=== PATIENT | male | born 1975 | race Caucasian/White ===

== ENCOUNTER 2018-07-25 09:44 | Emergency (ER) | payer OTHER, SELFPAY ==
[2018-07-25 10:06] VITALS: BP 113/64; PULSE 97; RESP 20; TEMP 36.8; O2SAT 98
--- NOTE | 2018-07-25 10:50 | W.ED.GENAD ---
Discharge Plan Disposition Patient Disposition: HOME Condition: Fair Discharge Details Chief Complaint: Chest/Rib Clinical Impression: Rib contusion Primary Care Provider: Cameron Mckoy ED Provider: Sangita Thomas Home Meds and New Rx's Prescriptions: Continue trazodone 50 mg Tablet 50 mg PO HS PRNRF: 0 Discharge Instructions Instructions: Rib Contusion (ED) Additional Instructions: Encourage hydration. Tylenol and/or ibuprofen as needed for discomfort. You may take 1000 mg of Tylenol 4 times daily with a max of 4000 mg daily. You may also use 600 mg of ibuprofen 4 times daily. Please avoid heavy lifting as this will increase her pain. I have asked her care transport nurse help facilitate primary care follow-up. If you develop fever/chills, cough, increased shortness of breath or other new/worsening symptoms please seek care urgently once again. Stand Alone Forms: Work Release Discharge Data Discharge Date/Time-TO BE ENTERED AT DEPARTURE: 07/25/18 12:54 Medical Decision Making MDM Narrative Medical decision making narrative: Patient is a 43-year-old male presenting today with chief complaint of anterior chest pain. He reports that 4 days ago he overdosed on what he assumed was heroin, believes this is actually fentanyl, and was revived by EMS. EMS did give him Narcan and complete round of CPR. Refused transport to the hospital at that time. Since that time, he has been having chest pain particularly on the anterior aspect. Is quite concerned that he may have fractured his sternum. Denies any shortness of breath when at rest but states that with movement, as he is needing to take deeper breaths he has increased discomfort. He continues to smoke. Patient rolls his own cigarettes. He reports that he has not used any heroin or other illicit drugs since his overdose reports that he will not do so again. He does report that he had Narcan at home but was unable to get to this. He was alone at the time and friends found him down. Patient does have history of pneumothorax that was traumatic in 1996. X-ray reviewed by radiologist. Advised that the lungs are unremarkable with no consolidation. Pleural space unremarkable, no pleural effusion, no pneumothorax. Heart and mediastinum are unremarkable no cardiomegaly. There is an oblique fracture noted in the mid left clavicular shaft. No other bony abnormalities noted by radiologist Discussed findings with the patient. She reports that he has known left clavicle fracture from several years ago. No acute process therefore is noted on the chest x-ray. He is not having any left clavicular pain today. Patient will be given an incentive spirometer and uses instructions. Encourage hydration. Advised Tylenol and/or ibuprofen as needed for discomfort. Is requesting a work note which I will give him to have really any heavy lifting as this would greatly exacerbate his discomfort. Patient does not have a primary care, I have asked our care transport nurse to help facilitate follow up with primary care within the next week for reevaluation. All of his questions and concerns were addressed. He is in agreement with this plan. HPI - General Adult General Mode of arrival: ambulatory. Date/Time Provider Initiated Documentation: 07/25/18 10:47. Limitations to Documentation: no limitations. Information obtained by: patient. History of Present Illness 43 year old M presents to the emergency department with the chief complaint of Anterior rib pain, described as moderate, with intensity rated at 5. Quality is described as stabbing and aching, and is localized to the chest. Patient reports no radiation; denies radiation to back, neck, extremity, abdomen and flank. Patient started experiencing this day(s) (4) and it has been constant. No relieving factors improve symptom(s), Movement worsens symptoms (worse with deep inspiration) . Patient notes shortness of breath (feels SOB with exacerbation, associates with worsening of his anterior CP with deep inspiration); denies cough, fever/chills, loss of appetite, nausea/vomiting and rash. Patient did receive the following treatments prior to arrival, none Related Data Home Medications Medication Instructions Recorded Confirmed trazodone 50 mg PO HS PRN 07/25/18 07/25/18 Allergies Allergy/AdvReac Type Severity Reaction Status Date / Time Penicillins Allergy Unknown Unverified 07/25/18 10:08 General Stated Complaint: Chest/Rib KATY: 3 Review of Systems Constitutional Reports as per HPI, Denies chills, Denies difficulty sleeping, Denies fever(s), Denies headache(s) and Denies poor appetite Eyes Patient Denies change in vision and Denies loss of vision ENT Denies headache(s) Cardiovascular Reports as per HPI, Reports chest pain (anterior chest wall pain), Denies dyspnea and Reports dyspnea on exertion (associates with increased pain when taking deep breaths) Respiratory Denies cough, Denies dyspnea and Reports dyspnea on exertion (associates with increased pain when taking deep breaths) Gastrointestinal Reports as per HPI, Denies abdominal pain, Denies change in bowel habits, Denies nausea and Denies vomiting Musculoskeletal Denies tingling Integumentary/Breasts Denies erythema, Denies rash and Denies skin pain Neurologic Denies headache(s), Denies focal weakness, Denies loss of vision, Denies sensory deficit, Denies tingling and Denies paresthesias Psychiatric Denies homicidal ideation and Denies suicidal ideation [facility] Social History Smoking/Tobacco Use Status: Current every day Exam Const General: cooperative, healthy appearing, comfortable, no acute distress, well developed and well groomed Nutritional Appearance: average body habitus and well nourished Orientation: alert and awake HENDC Head: normal to inspection and normocephalic Ears: hearing grossly normal bilaterally Eyes General: appearance normal, both eyes and all related structures Neck Neck: normal visual inspection, full ROM and no lymphadenopathy Chest Chest: abnormal inspection of the chest (Patient has pain with palpation over the anterior aspect of the chest. No deformity palpated. No focal area of discomfort. No pain with lateral chest wall pressure applied), normal palpation of entire chest wall, no crepitus, no localized rib tenderness, no masses and tenderness Resp Effort & Inspection: normal respiratory effort and able to speak in complete sentences Auscultation: clear to auscultation bilaterally, breath sounds present, no rales, no rhonchi and no wheezes Percussion: percussion normal Cardio Rate: regular rate Rhythm: regular rhythm Heart Sounds: S1 normal and S2 normal GI Inspection: normal to inspection, no abdominal wall ecchymosis and non-distended Palpation: soft, no hepatosplenomegaly, not firm, no masses, not rigid and nontender Auscultation: normal bowel sounds Back/Spine/Pelvis Back: no CVA tenderness Cervical Spine: cervical ROM normal Thoracic/Lumbar Spine: thoracic and lumbar spine normal to inspection Skin General skin exam: no rashes or lesions noted Lesions: no lesions Rashes: no rashes Trauma: no lacerations or abrasions Wounds: no wounds Neuro General: alert, awake and oriented x3 Cognition: normal cognition Speech: speech normal Gait: normal gait Motor: muscle tone normal throughout Sensory Exam: no sensory deficits noted Psych Appearance: grossly normal Mental Status: mental status grossly normal Speech and Movement: speech and movement normal Mood: congruent mood Affect: normal affect Course Vital Signs Temperature 36.8 C 07/25/18 10:06 Pulse 97 H 07/25/18 10:06 Respiratory Rate 20 07/25/18 10:06 Blood Pressure 113/64 07/25/18 10:06 Pulse Oximetry 98 07/25/18 10:06 Temperature 36.8 C 07/25/18 10:06 Pulse 97 H 07/25/18 10:06 Respiratory Rate 20 07/25/18 10:06 Blood Pressure 113/64 07/25/18 10:06 Pulse Oximetry 98 07/25/18 10:06
--- NOTE | 2018-07-25 10:57 | DI.RAD_ITS ---
SYMPTOM/DIAGNOSIS: CPR 4 DAYS AGO. CONCERN FOR FRACTURE. LUNGS ARE CLEAR. PA AND LATERAL CHEST: Comparison is made with 29 May 2011. Cardiac and mediastinal contours have a normal appearance. The lungs are well inflated and clear. No pneumothorax, infiltrate or effusion seen. There is an old left clavicle fracture. No rib or thoracic spine fractures are seen. IMPRESSION: Negative chest x-ray.
--- NOTE | 2018-07-25 11:01 | ED.GENADUL_ITS ---
Discharge Plan Disposition Patient Disposition: HOME Condition: Fair Discharge Details Chief Complaint: Chest/Rib Clinical Impression: Rib contusion Primary Care Provider: Cameron Mckoy ED Provider: Sangita Thomas Home Meds and New Rx's Prescriptions: Continue trazodone 50 mg Tablet 50 mg PO HS PRNRF: 0 Discharge Instructions Instructions: Rib Contusion (ED) Additional Instructions: Encourage hydration. Tylenol and/or ibuprofen as needed for discomfort. You may take 1000 mg of Tylenol 4 times daily with a max of 4000 mg daily. You may also use 600 mg of ibuprofen 4 times daily. Please avoid heavy lifting as this will increase her pain. I have asked her behavioral health care manager help facilitate primary care follow-up. If you develop fever/chills, cough, increased shortness of breath or other new/worsening symptoms please seek care urgently once again. Stand Alone Forms: Work Release Discharge Data Discharge Date/Time-TO BE ENTERED AT DEPARTURE: 07/25/18 12:54 Medical Decision Making MDM Narrative Medical decision making narrative: Patient is a 43-year-old male presenting today with chief complaint of anterior chest pain. He reports that 4 days ago he overdosed on what he assumed was heroin, believes this is actually fentanyl, and was revived by EMS. EMS did give him Narcan and complete round of CPR. Refused transport to the hospital at that time. Since that time, he has been having chest pain particularly on the anterior aspect. Is quite concerned that he may have fractured his sternum. Denies any shortness of breath when at rest but states that with movement, as he is needing to take deeper breaths he has increased discomfort. He continues to smoke. Patient rolls his own cigarettes. He reports that he has not used any heroin or other illicit drugs since his overdose reports that he will not do so again. He does report that he had Narcan at home but was unable to get to this. He was alone at the time and friends found him down. Patient does have history of pneumothorax that was traumatic in 1996. X-ray reviewed by radiologist. Advised that the lungs are unremarkable with no consolidation. Pleural space unremarkable, no pleural effusion, no pneumothorax. Heart and mediastinum are unremarkable no cardiomegaly. There is an oblique fracture noted in the mid left clavicular shaft. No other bony abnormalities noted by radiologist Discussed findings with the patient. She reports that he has known left clavicle fracture from several years ago. No acute process therefore is noted on the chest x-ray. He is not having any left clavicular pain today. Patient will be given an incentive spirometer and uses instructions. Encourage hydration. Advised Tylenol and/or ibuprofen as needed for discomfort. Is requesting a work note which I will give him to have really any heavy lifting as this would greatly exacerbate his discomfort. Patient does not have a primary care, I have asked our behavioral health care manager to help facilitate follow up with primary care within the next week for reevaluation. All of his questions and concerns were addressed. He is in agreement with this plan. HPI - General Adult General Mode of arrival: ambulatory . Date/Time Provider Initiated Documentation: 07/25/18 10:47 . Limitations to Documentation: no limitations . Information obtained by: patient . History of Present Illness 43 year old M presents to the emergency department with the chief complaint of Anterior rib pain, described as moderate, with intensity rated at 5. Quality is described as stabbing and aching, and is localized to the chest. Patient reports no radiation; denies radiation to back, neck, extremity, abdomen and flank. Patient started experiencing this day(s) (4) and it has been constant. No relieving factors improve symptom(s), Movement worsens symptoms (worse with deep inspiration) . Patient notes shortness of breath ( feels SOB with exacerbation, associates with worsening of his anterior CP with deep inspiration); denies cough, fever/chills, loss of appetite, nausea/ vomiting and rash. Patient did receive the following treatments prior to arrival, none Related Data Home Medications Medication Instructions Recorded Confirmed trazodone 50 mg PO HS PRN 07/25/18 07/25/18 Allergies Allergy/AdvReac Type Severity Reaction Status Date / Time Penicillins Allergy Unknown Unverified 07/25/18 10:08 General Stated Complaint: Chest/Rib KATY: 3 Review of Systems Constitutional Reports as per HPI, Denies chills, Denies difficulty sleeping, Denies fever(s), Denies headache(s) and Denies poor appetite Eyes Patient Denies change in vision and Denies loss of vision ENT Denies headache(s) Cardiovascular Reports as per HPI, Reports chest pain (anterior chest wall pain), Denies dyspnea and Reports dyspnea on exertion (associates with increased pain when taking deep breaths) Respiratory Denies cough, Denies dyspnea and Reports dyspnea on exertion (associates with increased pain when taking deep breaths) Gastrointestinal Reports as per HPI, Denies abdominal pain, Denies change in bowel habits, Denies nausea and Denies vomiting Musculoskeletal Denies tingling Integumentary/Breasts Denies erythema, Denies rash and Denies skin pain Neurologic Denies headache(s), Denies focal weakness, Denies loss of vision, Denies sensory deficit, Denies tingling and Denies paresthesias Psychiatric Denies homicidal ideation and Denies suicidal ideation [facility] Social History Smoking/Tobacco Use Status: Current every day Exam Const General: cooperative, healthy appearing, comfortable, no acute distress, well developed and well groomed Nutritional Appearance: average body habitus and well nourished Orientation: alert and awake HENKS Head: normal to inspection and normocephalic Ears: hearing grossly normal bilaterally Eyes General: appearance normal, both eyes and all related structures Neck Neck: normal visual inspection, full ROM and no lymphadenopathy Chest Chest: abnormal inspection of the chest (Patient has pain with palpation over the anterior aspect of the chest. No deformity palpated. No focal area of discomfort. No pain with lateral chest wall pressure applied), normal palpation of entire chest wall, no crepitus, no localized rib tenderness, no masses and tenderness Resp Effort & Inspection: normal respiratory effort and able to speak in complete sentences Auscultation: clear to auscultation bilaterally, breath sounds present, no rales , no rhonchi and no wheezes Percussion: percussion normal Cardio Rate: regular rate Rhythm: regular rhythm Heart Sounds: S1 normal and S2 normal GI Inspection: normal to inspection, no abdominal wall ecchymosis and non-distended Palpation: soft, no hepatosplenomegaly, not firm, no masses, not rigid and nontender Auscultation: normal bowel sounds Back/Spine/Pelvis Back: no CVA tenderness Cervical Spine: cervical ROM normal Thoracic/Lumbar Spine: thoracic and lumbar spine normal to inspection Skin General skin exam: no rashes or lesions noted Lesions: no lesions Rashes: no rashes Trauma: no lacerations or abrasions Wounds: no wounds Neuro General: alert, awake and oriented x3 Cognition: normal cognition Speech: speech normal Gait: normal gait Motor: muscle tone normal throughout Sensory Exam: no sensory deficits noted Psych Appearance: grossly normal Mental Status: mental status grossly normal Speech and Movement: speech and movement normal Mood: congruent mood Affect: normal affect Course Vital Signs Temperature 36.8 C 07/25/18 10:06 Pulse 97 H 07/25/18 10:06 Respiratory Rate 20 07/25/18 10:06 Blood Pressure 113/64 07/25/18 10:06 Pulse Oximetry 98 07/25/18 10:06 Temperature 36.8 C 07/25/18 10:06 Pulse 97 H 07/25/18 10:06 Respiratory Rate 20 07/25/18 10:06 Blood Pressure 113/64 07/25/18 10:06 Pulse Oximetry 98 07/25/18 10:06
--- NOTE | 2018-07-25 12:28 | DI.VRAD_ITS ---
EXAM: XR Chest, 2 Views EXAM DATE/TIME: 07/25/2018 10:58 AM CLINICAL HISTORY: 43 years old, male; Injury or trauma; Injury history: Cpr 4 days ago ? FX ribs; Initial encounter; Sprain or strain TECHNIQUE: XR of the chest, 2 views. COMPARISON: No relevant prior studies available. FINDINGS: Lungs: Unremarkable. No consolidation. Pleural space: Unremarkable. No pleural effusion. No pneumothorax. Heart/Mediastinum: Unremarkable. No cardiomegaly. Bones/joints: An oblique fracture is seen within the mid left clavicular shaft. IMPRESSION: 1. An oblique fracture is present within the mid left clavicular shaft. 2. No acute pulmonary disease. 3. Normal cardiac size. Dictated and Authenticated by: Ronni Mckoy MD. Ordering:CORA ROSS MD
== END 2018-07-25 12:54 | disposition home or self-care (01) ==
LOC: ER 12:48
PROVIDERS: Emergency Provider Physician Assistant; PCP Specialist/Technologist Athletic Trainer
DX: S20.219A Contusion of unspecified front wall of thorax, initial encounter (principal); X58.XXXA Exposure to other specified factors, initial encounter
CPT/HCPCS: 99283; 71046; 99282

== ENCOUNTER 2019-05-10 07:00 | Outpatient (CLI) | payer OTHER, SELFPAY ==
--- NOTE | 2019-05-10 10:21 | DI.RAD_ITS ---
SYMPTOMS/DIAGNOSIS: LEFT HIP PAIN, M25.552, WITH APPARENT EXTERNAL ROTATION DEFORMITY AT LEFT HIP PELVIS AND BILATERAL HIPS: There is mild bilateral acetabular spurring. The joint spaces are well maintained. The SI joints and pubic symphysis are unremarkable. IMPRESSION: Minimal degenerative changes.
== END 2019-05-10 07:20 ==
PROVIDERS: PCP Family Medicine; Visit Provider Family Medicine
DX: M25.552 Pain in left hip (principal); M16.12 Unilateral primary osteoarthritis, left hip
CPT/HCPCS: 73521

== ENCOUNTER 2019-08-18 17:23 | Outpatient (REF) | payer OTHER, SELFPAY ==
[2019-08-21 12:19] LABS: Buprenorphine 149.4 ng/mL; Norbuprenorphine 347.5 ng/mL
== END 2019-08-18 17:43 ==
LOC: NCHCN 17:23
PROVIDERS: PCP Family Medicine; Visit Provider Family Medicine
DX: F11.20 Opioid dependence, uncomplicated (principal)
CPT/HCPCS: 80307

== ENCOUNTER 2019-12-29 19:36 | Outpatient (REF) | payer OTHER, SELFPAY ==
[2020-01-02 03:00] LABS: Codeine Negative ng/mL (Cutoff: 25); Dihydrocodeine Negative ng/mL (Cutoff: 25); Hydrocodone Negative ng/mL (Cutoff: 25); Hydromorphone Negative ng/mL (Cutoff: 25); Morphine 384 ng/mL (Cutoff: 25); Naloxone 1399 ng/mL (Cutoff: 25); Norhydrocodone Negative ng/mL (Cutoff: 25); Noroxycodone Negative ng/mL (Cutoff: 25); Noroxymorphone 40 ng/mL (Cutoff: 25)
== END 2019-12-29 19:56 ==
LOC: NCHCN 19:36
PROVIDERS: PCP Family Medicine; Visit Provider Family Medicine
DX: F11.20 Opioid dependence, uncomplicated (principal)
CPT/HCPCS: 80361

== ENCOUNTER 2021-03-19 13:01 | Emergency (ER) | payer OTHER, SELFPAY ==
[2021-03-19 13:19] VITALS: BP 126/72; PULSE 75; RESP 20; TEMP 36.5; O2SAT 100
--- NOTE | 2021-03-19 13:44 | W.ED.GENAD ---
Discharge Plan Disposition Patient Disposition: HOME Condition: Good Discharge Details Clinical Impression: Abscess, dental Primary Care Provider: Duke Sheriff ED Provider: Yaima Hobbs Home Meds and New Rx's Prescriptions: New clindamycin HCl 300 mg capsule 300 mg PO Q6H Qty: 40 RF: 0 No Action trazodone 50 mg Tablet 50 mg PO HS PRNRF: 0 buprenorphine-naloxone 8-2 mg film 2 film sublingual DAILY RF: 0 Discharge Instructions Instructions: Dental Abscess (ED) Additional Instructions: Take antibiotic as prescribed Ibuprofen and Tylenol for discomfort Please return earlier should you have new or worsening complaints Follow-up with dentist Stay away from extremes of temperature and hard foods Discharge Data Discharge Date/Time-TO BE ENTERED AT DEPARTURE: 03/19/21 13:50 Medical Decision Making Patient to follow-up with dentist, started on clindamycin for suspected abscess formation, no clinical evidence of Ozzie's angina, patient appears well Return precautions discussed and patient expressed understanding Ibuprofen and Tylenol for pain control Patient does take Suboxone and denies need for any additional medication Differential Diagnosis Differential Diagnosis: Ozzie's angina, dental abscess, dental fracture, cellulitis Medical Records Medical records reviewed: Yes I reviewed the patient's medical records. HPI General Mode of arrival: ambulatory. Date/Time Provider Initiated Documentation: 03/19/21 13:36. Limitations to Documentation: no limitations. Information obtained by: patient. HPI Narrative: This 45-year-old gentleman with history of opiate abuse on Suboxone presents with right lower dental pain for the past 4 days. He was taking ibuprofen for pain without relief. He denies any difficulty swallowing, chest pain, shortness of breath, or any additional complaints at this time. He denies any fever or chills. Pain exacerbated with chewing. Related Data Home Medications Medication Instructions Recorded Confirmed trazodone 50 mg PO HS PRN 07/25/18 03/19/21 buprenorphine-naloxone 2 film SUBLINGUAL DAILY 03/19/21 03/19/21 clindamycin HCl 300 mg PO Q6H #40 cap 03/19/21 Previous Rx's Medication Instructions Recorded clindamycin HCl 300 mg PO Q6H #40 cap 03/19/21 Allergies Allergy/AdvReac Type Severity Reaction Status Date / Time Penicillins Allergy Unknown Unverified 03/19/21 13:20 General Stated Complaint: DentalOral KATY: 4 Review of Systems Narrative: Review of systems negative x7 aside from indication in HPI PFSH Social History Smoking/Tobacco Use Status: Current every day Smoking risk assessment performed?: Yes Alcohol Intake: current Alcohol Intake frequency: a few times a month Drug use: Never Substance use type: does not use Do you feel safe at home: Yes Do you feel safe in your relationship?: Yes Exam Const General: cooperative and no acute distress [facility] Teeth image: 1. Widespread dental decay, numerous fractures, no evidence of deep space infection, uvula midline, no soft palate induration, maintaining secretions, no trismus, no obvious facial swelling Eyes Pupils: PERRL Neck Other: No stridor Resp Effort & Inspection: normal respiratory effort Cardio Rate: regular rate Rhythm: regular rhythm Course Vital Signs Vital signs: Vital Signs Temperature 36.5 C 03/19/21 13:19 Pulse 75 03/19/21 13:19 Respiratory Rate 20 03/19/21 13:19 Blood Pressure 126/72 03/19/21 13:19 Pulse Oximetry 100 03/19/21 13:19 Temperature 36.5 C 03/19/21 13:19 Temperature Source Skin 03/19/21 13:19 Pulse 75 03/19/21 13:19 Respiratory Rate 20 03/19/21 13:19 Respiratory Effort Non-Labored 03/19/21 13:21 Blood Pressure 126/72 03/19/21 13:19 Blood Pressure Position Sitting 03/19/21 13:19 Pulse Oximetry 100 03/19/21 13:19 Oxygen Delivery Method Room Air 03/19/21 13:19 Oxygen Flow Rate 0 03/19/21 13:19 Pain Level 4 03/19/21 13:19
== END 2021-03-19 13:50 | disposition home or self-care (01) ==
PROVIDERS: Emergency Provider Physician Assistant; PCP Family Medicine
DX: R68.84 Jaw pain (principal); K04.7 Periapical abscess without sinus
CPT/HCPCS: 99283

== ENCOUNTER 2021-03-21 13:03 | Emergency (ER) | payer OTHER, SELFPAY ==
[2021-03-21 13:08] VITALS: BP 119/55; PULSE 92; RESP 16; TEMP 36.6; O2SAT 98
--- NOTE | 2021-03-21 13:50 | ED.GENADUL_ITS ---
Discharge Plan Disposition Patient Disposition: HOME Condition: Stable Discharge Details Clinical Impression: Nausea & vomiting Primary Care Provider: [facility] ED Provider: Mariana De Leon Home Meds and New Rx's Prescriptions: New azithromycin 250 mg tablet See Rx Instructions .ROUTE .COMPLEX Qty: 6 RF: 0 ondansetron 4 mg tablet,disintegrating 4 mg PO Q8H PRN5 Days Qty: 15 RF: 0 Discontinued clindamycin HCl 300 mg capsule 300 mg PO Q6H Qty: 40 RF: 0 No Action trazodone 50 mg Tablet 50 mg PO HS PRNRF: 0 buprenorphine-naloxone 8-2 mg film 2 film sublingual DAILY RF: 0 Discharge Instructions Instructions: Acute Nausea and Vomiting (ED) Additional Instructions: Please stop the clindamycin and begin the azithromycin. Take the nausea medication up to 3 times a day 20 minutes before eating or taking medications. Please follow-up with a dentist. Follow up with primary care provider in 3-5 days. Return to ED sooner if any worsening or concerns. Increase oral fluids. Referrals: [facility] Sheriff [Primary Care Provider] - Discharge Data Discharge Date/Time-TO BE ENTERED AT DEPARTURE: 03/21/21 13:57 Medical Decision Making At this time will instruct patient to stop clindamycin we will put patient on azithromycin due to penicillin allergy. Also will give a prescription for Zofran ODT for nausea vomiting. Discussed plan of care and strict return instructions with patient who verbalized understanding. HPI General Mode of arrival: ambulatory . Date/Time Provider Initiated Documentation: 03/21/21 13:45 . Limitations to Documentation: no limitations . Information obtained by: patient . HPI Narrative: 45-year-old male presents to ER with chief complaint of nausea vomiting after beginning clindamycin on Friday for a tooth infection. He is allergic to penicillin. He is a smoker. Denies any abdominal pain or diarrhea. No fever no chills. No other complaints at this time. Related Data Home Medications Medication Instructions Recorded Confirmed trazodone 50 mg PO HS PRN 07/25/18 03/19/21 buprenorphine-naloxone 2 film SUBLINGUAL DAILY 03/19/21 03/21/21 azithromycin See Rx Instructions .ROUTE 03/21/21 .COMPLEX #6 tab ondansetron 4 mg PO Q8H PRN 5 Days #15 tab 03/21/21 Previous Rx's Medication Instructions Recorded azithromycin See Rx Instructions .ROUTE 03/21/21 .COMPLEX #6 tab ondansetron 4 mg PO Q8H PRN 5 Days #15 tab 03/21/21 Allergies Allergy/AdvReac Type Severity Reaction Status Date / Time Penicillins Allergy Unknown Unverified 03/21/21 13:12 General Stated Complaint: DentalOral KATY: 3 Review of Systems All systems reviewed & are unremarkable except as noted in HPI and below Gastrointestinal Gastrointestinal: Reports nausea and Reports vomiting PFSH Social History Smoking/Tobacco Use Status: Current every day Tobacco Type: cigarettes Smoking risk assessment performed?: Yes Alcohol Intake: current Alcohol Intake frequency: a few times a month Drug use: Never Substance use type: does not use Do you feel safe at home: Yes Do you feel safe in your relationship?: Yes Exam Narrative Exam Narrative: Constitutional: Alert and oriented x3. Appears stated age. Normal body habitus. Head: Normocephalic, no trauma. Eyes: Pupils PERRLA, Red reflex noted, EOM's intact. Eyelids symmetrical without lesions, discharge, or swelling. ENT: Bilateral TM's WNL, External ear normal to inspection, no mastoid TTP, swelling, or erythema, Nasal turbinates WNL, no nasal discharge. Dental caries noted right lower with surrounding mild gingivitis no area of fluctuance no drainage., Posterior pharynx WNL, no exudate. Chest: RRR, Normal S1, S2, distal pulses intact. Resp: Lungs clear to auscultation bilaterally, no wheezes, rales, or rhonchi. Musculoskeletal: Normal gait, 5/5 strength to all four extremities. Skin: No suspicious rashes or lesions. Capillary refill less than 2 sec. Neurologic: Cranial nerves II-XII intact. Alert and oriented x 3. DTR's intact. Hematologic/Lymphatic: No ecchymosis, no lymphadenopathy. Course Vital Signs Vital signs: Vital Signs Temperature 36.6 C 03/21/21 13:08 Pulse 92 H 03/21/21 13:08 Respiratory Rate 16 03/21/21 13:08 Blood Pressure 119/55 L 03/21/21 13:08 Pulse Oximetry 98 03/21/21 13:08 Temperature 36.6 C 03/21/21 13:08 Temperature Source Skin 03/21/21 13:08 Pulse 92 H 03/21/21 13:08 Respiratory Rate 16 03/21/21 13:08 Respiratory Effort Non-Labored 03/21/21 13:08 Blood Pressure 119/55 L 03/21/21 13:08 Blood Pressure Position Sitting 03/21/21 13:08 Pulse Oximetry 98 03/21/21 13:08 Oxygen Delivery Method Room Air 03/21/21 13:08 Oxygen Flow Rate 0 03/21/21 13:08 Pain Level 3 03/21/21 13:13
--- NOTE | 2021-03-21 15:01 | NUR.NOTE ---
Nursing Note: Odansetron called in to [facility]. It did not transmit to them. Luly Light
== END 2021-03-21 13:57 | disposition home or self-care (01) ==
PROVIDERS: Emergency Provider Registered Nurse Emergency; PCP Family Medicine
DX: R11.2 Nausea with vomiting, unspecified (principal); T36.8X5A Adverse effect of other systemic antibiotics, initial encounter
CPT/HCPCS: 99283

== ENCOUNTER 2023-02-12 16:57 | Outpatient (REF) | payer BC, SELFPAY ==
[2023-02-12 19:59] LABS: Calculated LDL 104 mg/dL (<100); Cholesterol 162 mg/dL (<200); HDL Cholesterol 38 mg/dL (40-60); Triglyceride 102 mg/dL (<150)
[2023-02-12 20:13] LABS: Hemoglobin A1C 6.1 % (<5.7)
[2023-02-14 08:48] LABS: HIV-1/2 Ag & Ab Screen Negative (Negative)
[2023-02-14 09:25] LABS: Hepatitis C Ab w Rflx HCV PCR Negative (Negative)
== END 2023-02-12 16:58 | disposition home or self-care (01) ==
LOC: NCHCN 16:57
PROVIDERS: PCP Family Medicine; Visit Provider Family Medicine
DX: Z00.00 Encounter for general adult medical examination without abnormal findings (principal); Z11.4 Encounter for screening for human immunodeficiency virus [HIV]; Z11.59 Encounter for screening for other viral diseases; Z13.1 Encounter for screening for diabetes mellitus; Z13.220 Encounter for screening for lipoid disorders
CPT/HCPCS: 80061; 86803; 87389; 83036

== ENCOUNTER 2023-08-03 17:20 | Emergency (ER) | payer BC, SELFPAY ==
[2023-08-03 17:26] VITALS: BP 115/75; PULSE 86; RESP 14; TEMP 37.2; O2SAT 97
[2023-08-03 18:50] LABS: Abs Immature Grans 0.03 10^3/uL (0.0-0.06); Absolute Basophil Count 0.06 10^3/uL (0.0-0.2); Absolute Eosinophil Count 0.25 10^3/uL (0.0-0.7); Absolute Lymphocyte Count 3.64 10^3/uL (1.2-3.4); Absolute Monocyte Count 1.11 10^3/uL (0.1-0.8); Basophils % 0.4; Eosinophils % 1.7; HCT 39.9 % (40.0-50.0); HGB 13.7 g/dL (13.5-17.5); Immature Grans % 0.2; MCH 29.8 pg (27.0-33.0); MCHC 34.3 % (32.0-36.0); MCV 87 fL (80-95); MPV 9.6 fL (8.0-11.0); Monocytes % 7.6; Neutrophils % 65.1; Platelet Count 322 10^3/uL (130-400); RDW 13.7 % (11.8-14.1); RDW-SD 43.7 fL; WBC 14.55 10^3/uL (4.4-10.8)
[2023-08-03 18:51] LABS: Bilirubin Negative (Negative); Blood Negative (Negative); Clarity Clear (Clear); Glucose Negative (Negative); Ketones Negative (Negative); Leukocyte Esterase Negative (Negative); Nitrite Negative (Negative); Specific Gravity 1.025 (1.005-1.025); Urobilinogen 0.2 mg/dL (Up to 0.2)
[2023-08-03 18:52] LABS: Absolute Neutrophil Count 9.47 10^3/uL (1.2-6.7)
[2023-08-03 19:06] LABS: ALT 16 U/L (16-63); AST 13 U/L (15-37); Albumin 4.1 g/dL (3.4-5.0); Alkaline Phosphatase 59 U/L (46-116); Anion Gap 4.1 mmol/L (3-11); BUN 18 mg/dL (7-18); Bilirubin, Total 0.8 mg/dL (0.2-1.0); CO2 31.9 mmol/L (21.0-32.0); CREATININE 0.9 mg/dL (0.70-1.30); Calcium 9.1 mg/dL (8.5-10.1); Chloride 97 mmol/L (98-107); Estimated GFR 105.35 (mL/min/1.73m2); Glucose 127 mg/dL (74-106); Potassium 3.8 mmol/L (3.5-5.1); Sodium 133 mmol/L (136-145); Total Protein 7.1 g/dL (6.4-8.2)
[2023-08-03 19:07] LABS: Creatine Kinase 151 U/L (39-308)
[2023-08-03] MEDS: Normal Saline 1,000 ML 1000 ML IV (19:17)
--- NOTE | 2023-08-03 19:42 | DI.RAD_ITS ---
Exam(s) XR ABDOMEN FLAT UPRIGHT EXAM: 2D digital imaging was performed. CLINICAL HISTORY: constipation. COMPARISON: No exams were available for comparison TECHNIQUE: Supine and uprightSupine and Lateral views of the abdomen were performed. FINDINGS: BOWEL GAS PATTERN: Nondistended.No free air. Moderate quantity of stool seen throughout the colon. CALCIFICATIONS: No urinary tract calcifications. OSSEOUS STRUCTURES: Mild degenerative changes in the spine. Visualized portions of chest: Unremarkable. IMPRESSION: 1. Nonobstructive bowel gas pattern. Moderate stool. 2. No radiopaque calculi. 3. No free air. DATA REPOSITORY: RADIATION DOSE DELIVERED:
--- NOTE | 2023-08-03 20:18 | DI.VRAD_ITS ---
PROCEDURE INFORMATION: Exam: XR Abdomen Exam date and time: 08/03/2023 7:32 PM Age: 48 years old Clinical indication: Constipation TECHNIQUE: Imaging protocol: Radiologic exam of the abdomen. Views: 2 Views. Upright and supine views. COMPARISON: CR XR hip pelvis adult Bl 05/10/2019 10:12 AM FINDINGS: Lungs: Lung bases are clear Gastrointestinal tract: Mild fecal retention throughout the colon. No dorie bowel impaction. No bowel edema or obstructive changes. Small bowel loops are unremarkable. Gastric contour is unremarkable. Intraperitoneal space: No free air within the abdomen. No gross ascites. Bones/joints: Degenerative lumbar spine features of mild severity. IMPRESSION: 1. No bowel obstruction, edema, or significant fecal retention. 2. Degenerative lumbar spine change. 3. Clear lung bases and pleural space. Dictated and Authenticated by: Anderson Anthony MD. Ordering:JEMAL Erwin MD
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
== END 2023-08-03 20:13 | disposition home or self-care (01) ==
PROVIDERS: Emergency Provider Physician Assistant; PCP Family Medicine
DX: R10.9 Unspecified abdominal pain (principal); R33.8 Other retention of urine
CPT/HCPCS: 80053; 82550; 96360; 99284; 74019; 81003; 85025

== ENCOUNTER 2023-10-27 17:35 | Emergency (ER) | payer BC, SELFPAY ==
[2023-10-27 17:38] VITALS: BP 134/78; PULSE 80; RESP 16; TEMP 37.3; O2SAT 99
[2023-10-27] MEDS: Clindamycin 150 MG CAP, 12 CAPS/BTL 450 MG PO (18:12)
[2023-10-27 18:19] VITALS: BP 138/82; PULSE 80; RESP 12; O2SAT 98
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
== END 2023-10-27 18:20 | disposition home or self-care (01) ==
PROVIDERS: Emergency Provider Student in an Organized Health Care Education/Training Program; PCP Family Medicine
DX: R68.84 Jaw pain (principal); K08.89 Other specified disorders of teeth and supporting structures
CPT/HCPCS: 64400

== ENCOUNTER 2024-09-19 20:04 | Emergency (ER) | payer BC, SELFPAY ==
[2024-09-19 20:07] VITALS: BP 134/80; PULSE 68; RESP 14; TEMP 36.9; O2SAT 100
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
[2024-09-19] MEDS: Clindamycin 150 MG CAP, 12 CAPS/BTL 450 MG PO (20:29)
== END 2024-09-19 20:31 | disposition home or self-care (01) ==
LOC: ER 20:35
PROVIDERS: Emergency Provider Physician Assistant; PCP Family Medicine
DX: K08.89 Other specified disorders of teeth and supporting structures (principal); K04.7 Periapical abscess without sinus
CPT/HCPCS: 99283

== ENCOUNTER 2024-12-29 21:07 | Outpatient (REF) | payer BC, SELFPAY ==
[2024-12-29 20:02] LABS: Hemoglobin A1C 6.1 % (<5.7)
[2024-12-29 20:03] LABS: ALT 18 U/L (16-63); AST 16 U/L (15-37); Alkaline Phosphatase 63 U/L (46-116); Anion Gap 6.7 mmol/L (3-11); BUN 24 mg/dL (7-18); Bilirubin, Total 0.41 mg/dL (0.2-1.0); CO2 31.3 mmol/L (21.0-32.0); Calcium 9.2 mg/dL (8.5-10.1); Calculated LDL 112 mg/dL (<100); Chloride 105 mmol/L (98-107); Cholesterol 177 mg/dL (<200); Estimated GFR 92.26 (mL/min/1.73m2); Glucose 87 mg/dL (74-106); HDL Cholesterol 45 mg/dL (40-60); Potassium 4.3 mmol/L (3.5-5.1); Sodium 143 mmol/L (136-145); Total Protein 6.8 g/dL (6.4-8.2); Triglyceride 100 mg/dL (<150)
== END 2024-12-29 21:08 | disposition home or self-care (01) ==
LOC: NCHCN 21:07
PROVIDERS: PCP Family Medicine; Visit Provider Nurse Practitioner Family
DX: Z00.00 Encounter for general adult medical examination without abnormal findings (principal); R73.03 Prediabetes
CPT/HCPCS: 80053; 80061; 83036